=== PATIENT | female | born 1980 | race Caucasian/White ===

== ENCOUNTER 2021-08-12 05:39 | Outpatient (CLI) | payer OTHER ==
[~2021-08-12] VITALS: Ht 154.9 cm; Wt 95.0 kg
[2021-08-12] MEDS ORDERED: HYDR12.56 PO (10:17)
[2021-08-12] MEDS ORDERED: METO50TA7 PO (10:17)
[2021-08-12] MEDS ORDERED: SPIR25TA5 PO (10:17)
[2021-08-12] MEDS ORDERED: DULO60CA59 PO (10:17)
[2021-08-12] MEDS ORDERED: ESOM40CA52 PO (10:17)
[2021-08-12] MEDS ORDERED: SUCR1TAB PO (10:17)
[2021-08-12] MEDS ORDERED: AMLO-250 PO (10:17)
[2021-08-12] MEDS ORDERED: LAMO200T5 PO (10:17)
[2021-08-12] MEDS ORDERED: ARIP10TA57 PO (10:17)
[2021-08-12] MEDS ORDERED: SPIR50TA4 PO (10:17)
[2021-08-12] MEDS ORDERED: FENO145T26 PO (10:17)
== END 2021-08-12 11:11 | disposition home or self-care (01) ==
LOC: PREOP 05:39
PROVIDERS: ATTEND Surgery
DX: Z01.818 Encounter for other preprocedural examination (principal)

== ENCOUNTER 2021-08-19 07:23 | Day surgery (SDC) | payer OTHER ==
[~2021-08-19] VITALS: Ht 154.9 cm; Wt 95.0 kg
[~2021-08-19 07:23] MED LIST: AMLO-250 PO; ARIP10TA57 PO; DULO60CA59 PO; ESOM40CA52 PO; FENO145T26 PO; HYDR12.56 PO; LAMO200T5 PO; METO50TA7 PO; SPIR25TA5 PO; SPIR50TA4 PO; SUCR1TAB PO
[2021-08-19] MEDS ORDERED: LACTATED RINGERS 1,000 ML IV STA (07:33)
[2021-08-19] MEDS ORDERED: PROPOFOL INJECTION 50 ML IV ONE (07:33)
[2021-08-19] MEDS ORDERED: LACTATED RINGERS 1,000 ML IV ONE (07:33)
[2021-08-19] MEDS ORDERED: MIDAZOLAM 2 MG/2 ML (VERSED) VIAL ONE (07:33)
[2021-08-19 07:45] VITALS: BP 141/97
[2021-08-19] MEDS ORDERED: HURRICAINE EXT TUBE (BENZOCAINE) XX PRN (07:45)
--- NOTE | 2021-08-19 08:31 | Progress Note-Pre Operative ---
Pre-Operative Progress Note H&P Reviewed The H&P was reviewed, patient examined and no changes noted. Time Seen by Provider: 08:24 Date H&P Reviewed: Aug 19, 2021 Time H&P Reviewed: 08:24 Pre-Operative Diagnosis: Chronic Gastritis SILVIA CAMACHO DO Aug 19, 2021 08:31
[2021-08-19 08:45] VITALS: BP 142/89
[2021-08-19 08:50] VITALS: BP 152/72
[2021-08-19 08:55] VITALS: BP 152/72
--- NOTE | 2021-08-19 08:56 | Progress Note-Post Operative ---
Post-Operative Progess Note Surgeon (s)/Office Messenger Helper (s) Surgeon SILVIA CAMACHO DO Office Messenger Helper: none Pre-Operative Diagnosis Chronic Gastritis Post-Operative Diagnosis Chronic Gastritis Small Hiatal Hernia Procedure & Operative Findings Date of Procedure 08/19/21 Procedure Performed/Findings EGD with bx PROCEDURE NOTE: After informed consent was obtained, the patient was brought to the endoscopy suite, placed in bed in left lateral decubitus position. She was administered IV sedation by the CAD MANAGER who then monitored vitals the entire time, heart rate, blood pressure and pulse ox and the scope was inserted down the mouth through the esophagus into the stomach. On the way down, noted some mild esophagitis, pushed into the stomach and pushed past the antrum into the duodenum. Duodenum looked good. Pulled back and noted retained food, large pieces and even some in the duodenum. Took pictures and then did a biopsy of the antrum, retroflexed the scope, saw a small hiatal hernia, took a picture of this and then pulled the scope into the GE junction, took a picture of the esophagitis and then did a biopsy of the GE junction. Pushed the scope back into the stomach, suctioned all the air out of the stomach. At this point pulled the scope up the esophagus and out the mouth. The patient tolerated the procedure, and she recovered in endoscopy suite. Anesthesia Type IV sedation by CAD MANAGER Estimated Blood Loss Estimated blood loss (mL): scant Specimens/Packing Specimens Removed antral bx Body of stomach bx GE jxn bx SILVIA CAMACHO DO Aug 19, 2021 08:56
--- NOTE | 2021-08-19 08:57 | Endoscopy Discharge Instruct ---
Endo Procedure/Findings Findings 1.: Gastritis 2.: Hiatal Hernia Discharge Instructions - Activity: You might feel a little sleepy until tomorrow. This is due to the medicine you received to relax you. Until tomorrow, you should: NOT drive a car, operate machinery or power tools. NOT drink any alcoholic beverages. NOT make any important decisions or sign importortant papers. Do not return to work until tomorrow, unless otherwise instructed. Resume previous activities tomorrow. Diet: Start by taking liquids. If you tolerate liquids, advance to solid food. 1.: EGD in 3 years Notify Physician - If you experience excessive bleeding, unusual abdominal pain, fever, or chest pain, contact your doctor immediately. SILVIA CAMACHO DO Aug 19, 2021 08:57
[2021-08-19 09:20] VITALS: BP 129/80
--- NOTE | 2021-08-19 14:23 | Anesthesia-General Post-Op ---
MAC Patient Condition Mental Status/LOC: Same as Preop Cardiovascular: Satisfactory Nausea/Vomiting: Absent Respiratory: Satisfactory Pain: Controlled Complications: Absent Post Op Complications Complications None Follow Up Care/Instructions Patient Instructions None needed. Anesthesiology Discharge Order Discharge Order Patient is doing well, no complaints, stable vital signs, no apparent adverse anesthesia problems. No complications reported per nursing. YADIEL MENDOZA CRNA Aug 19, 2021 14:23
== END 2021-08-19 09:30 | disposition home or self-care (01) ==
LOC: ENDO 07:23
PROVIDERS: ATTEND Surgery
DX: K29.50 Unspecified chronic gastritis without bleeding (principal); K44.9 Diaphragmatic hernia without obstruction or gangrene; K21.00 Gastro-esophageal reflux disease with esophagitis, without bleeding; K90.41 Non-celiac gluten sensitivity